=== PATIENT | male | born 1950 | race Caucasian/White ===

== ENCOUNTER 2019-10-05 12:59 | Inpatient (IN) | payer OTHER ==
[~2019-10-05] VITALS: Ht 182.9 cm; Wt 83.4 kg
[2019-10-05 14:28] LABS: HEMOGLOBIN 10.3 g/dl (13.5-18.0); MEAN CELL VOLUME 99 fl (80.0-100.0); MEAN CORPUSCULAR HEMOGLOBIN 32 pg (27.0-31.0); MEAN CORPUSCULAR HGB CONC 32 g/dl (33.0-37.0); MEAN PLATELET VOLUME 9.6 fl (7.4-10.4); PLATELET COUNT 253 K/mm3 (130-400); RED BLOOD COUNT 3.23 M/mm3 (4.20-5.60); REDCELL DISTRIBUTION WIDTH-CV 15.8 % (11.5-14.5)
[2019-10-05 14:32] LABS: INR 1.1 (0.8-3.0); PROTHROMBIN TIME 12.4 SECONDS (9.7-12.8)
[2019-10-05 14:36] LABS: BILIRUBIN,TOTAL 0.5 mg/dL (0.0-1.0); CALCIUM 9.2 mg/dL (8.4-10.2); CREATININE, serum 0.88 (0.66-1.25); POTASSIUM 4.7 mmol/L (3.4-5.0); TOTAL PROTEIN 7.5 gm/dL (6.4-8.2)
[2019-10-05 14:38] LABS: HEMATOCRIT 31.9 % (42.0-52.0)
[2019-10-05] MEDS ORDERED: ULTRAM 50MG TAB50 MG PO (16:05)
[2019-10-05] MEDS ORDERED: PRILOSEC 20MG20 MG PO (16:05)
[2019-10-05] MEDS ORDERED: PLAVIX 75MG TAB75 MG PO (16:06)
[2019-10-05] MEDS ORDERED: LYRICA 150MG C150 MG PO (16:08)
[2019-10-05] MEDS ORDERED: ZYLOPRIM 300MG300 MG PO (16:09)
[2019-10-05] MEDS ORDERED: GLUCOPHAGE500 MG/TAB PO (16:09)
[2019-10-05] MEDS ORDERED: METHOTREXA2.5 MG/TAB PO (16:10)
[2019-10-05] MEDS ORDERED: CYMBALTA 60MG60 MG PO (16:11)
[2019-10-05] MEDS ORDERED: LODINE500 MG PO (16:11)
--- NOTE | 2019-10-05 16:30 | NUR ---
Patient up from ER. Alert and oriented x 3. Spouse at bedside. Right lower extremity in splint. Left lower extremity appears shortened and externally rotated, pedal pulses intact. Patient is able to move BLE. States he fell going up the first step to his daughters house with a tool bag and landed on concrete. States he constantly has pain to right lower extremity. States pain is currently 7/10 with movement, better in some positions. INT to right AC. Denies further needs at this time. Will continue to monitor.
[2019-10-05 17:23] VITALS: BP 109/66; PULSE 118; TEMP 98.1
[2019-10-05 17:38] LABS: BAND 1 % (0-10); NEUTROPHILS 81 % (42.0-75.2); PLATELET ESTIMATE NORMAL (NORMAL)
[2019-10-05 17:39] LABS: LYMPHOCYTE 15 % (20.0-51.0)
--- NOTE | 2019-10-05 18:49 | NUR ---
Patient has done well this afternoon, morphine given for pain 8/ to left hip, states the norco did not help with the pain. States relief with morphine. Family concerned about increased edema to left hip. Denies further needs at this time. Reported off to tooth cutter contact wheel.
[2019-10-05 19:28] VITALS: BP 128/79; PULSE 110; TEMP 98
[2019-10-05 20:29] LABS: HEMATOCRIT 29.2 % (42.0-52.0); HEMOGLOBIN 9.5 g/dl (13.5-18.0)
--- NOTE | 2019-10-05 21:07 | NUR ---
Pt doing ok. Assessment completed. Alert and oriented with VSS. Pt did not require insulin this evening. Pt here with L hip fracture and right ankle fracture. L hip is swollen 2+ but not redness. Right ankle is wrapped. Pedal pulses present in both feet. Pt has problems swallowing, states he has had previous esophageal stretching and he is going to get fixed soon. Pt in room. Morphine given prn for pain as pt not able to swallow meds at this moment. Call light within reach, will continue to monitor
--- NOTE | 2019-10-06 00:01 | NUR ---
Pt resting in bed with in room. Pt has left hip externally rotated and states this is the only way he can move it. Pt does not want teds/scds
[2019-10-06 03:13] VITALS: BP 109/69; PULSE 122; TEMP 98.4
--- NOTE | 2019-10-06 03:46 | NUR ---
BLADDER SCANNED PT, GREATER THAN 650. INSERTED HWANG WITH RETURN OF 550 CC OF CLEAR, YELLOW URINE
[2019-10-06 03:49] LABS: MUCOUS Present /lpf; PH 5 (5-8); SQUAMOUS EPITHELIAL None Seen /hpf; URINE APPEARANCE Clear; URINE BACTERIA None Seen /hpf; URINE BILIRUBIN Positive (NEGATIVE); URINE BLOOD Negative (NEGATIVE); URINE COLOR Yellow; URINE GLUCOSE Negative (NEGATIVE); URINE KETONE Negative (NEGATIVE); URINE LEUKOCYTE ESTERASE Negative (NEGATIVE); URINE NITRATE Negative (NEGATIVE); URINE PROTEIN(semi-quant) Negative (NEGATIVE); URINE RBC 0-2 /hpf; URINE UROBILINOGEN >=4.0 mg/dL (NEGATIVE)
[2019-10-06 06:05] LABS: CREATININE, serum 0.7 (0.66-1.25)
[2019-10-06 06:07] LABS: POTASSIUM 7.2 mmol/L (3.4-5.0)
[2019-10-06 06:18] LABS: BASO % 0.3 % (0.0-2.0); EOS % 0.5 % (0-4.0); GRAN # 4.6 (1.4-6.5); GRAN % 71.5 % (42.2-75.2); LYMPH # 1.4 (1.2-3.4); LYMPH % 21.7 % (20.0-51.0); MEAN CELL VOLUME 99 fl (80.0-100.0); MEAN CORPUSCULAR HGB CONC 33 g/dl (33.0-37.0); MEAN PLATELET VOLUME 10.5 fl (7.4-10.4); MONO # 0.4 (0.1-0.6); MONO % 5.7 % (1.7-9.3); PLATELET COUNT 165 K/mm3 (130-400); RED BLOOD COUNT 2.91 M/mm3 (4.20-5.60); REDCELL DISTRIBUTION WIDTH-CV 15.6 % (11.5-14.5)
--- NOTE | 2019-10-06 06:25 | NUR ---
Pt potassium 7.2. EKG, ABG, CK, and repeat BMP ordered. PT on tele. Will continue to monitor
[2019-10-06 06:39] LABS: ARTERIAL BLD GAS TCO2 CT 22.5; ARTERIAL BLOOD GAS BASE EXCESS -2.9 (-2-2); ARTERIAL BLOOD GAS HCO3 21.4 meq/L (22-26); ARTERIAL BLOOD GAS PCO2 35.1 mmHg (35-45); ARTERIAL BLOOD GAS PO2 56.5 mmHg (80-100)
[2019-10-06 06:47] LABS: HEMATOCRIT 28.8 % (42.0-52.0); HEMOGLOBIN 9.5 g/dl (13.5-18.0); MEAN CORPUSCULAR HEMOGLOBIN 33 pg (27.0-31.0)
[2019-10-06 06:48] LABS: CREATININE, serum 0.82 (0.66-1.25); POTASSIUM 4.9 mmol/L (3.4-5.0)
--- NOTE | 2019-10-06 06:50 | NUR ---
awake resting in bed, daughter at bedside, bedside shift report received from HANNAH Ghosh, ANDREW MenonN in with results of follow up K+ results,
[2019-10-06 07:09] LABS: MAGNESIUM 1.7 mg/dL (1.6-2.3); PHOSPHOROUS 4.2 mg/dL (2.5-4.5)
[2019-10-06 07:41] LABS: INR 1.1 (0.8-3.0); PROTHROMBIN TIME 13.3 SECONDS (9.7-12.8)
--- NOTE | 2019-10-06 09:05 | NUR ---
returned from CT scan, Dorcas RITTER in to see patient, breakfast here and positioned sitting up to eat, states pain is 6/10 at this time
--- NOTE | 2019-10-06 09:50 | NUR ---
c/o pain 6/10 to left hip, medicated with morphine 2mg slow IV
--- NOTE | 2019-10-06 10:30 | NUR ---
states the morphine has helped with pain and he is resting with his eyes closed, patient placed in 7#s bucks traction and tolerated well, will let him rest now
[2019-10-06 10:38] VITALS: BP 112/73; PULSE 112; TEMP 97.8
--- NOTE | 2019-10-06 11:00 | NUR ---
have reviewed assessment completed by student an in agreement with that assessment
--- NOTE | 2019-10-06 12:00 | NUR ---
only eats small amount due to having difficulty swallowing
--- NOTE | 2019-10-06 13:00 | NUR ---
hygiene and catheter care provided, tolerated well but c/o pain8/10 after completing, medicated with morphine 2mg slow IV
[2019-10-06 13:03] VITALS: BP 131/69; PULSE 104; TEMP 98.2
--- NOTE | 2019-10-06 14:26 | NUR ---
bedside shift report given to HANNAH Vail
[2019-10-06 17:10] VITALS: BP 129/66; PULSE 114; TEMP 98.5
[2019-10-06 19:18] VITALS: BP 122/63; PULSE 112; TEMP 99.1
--- NOTE | 2019-10-06 20:41 | NUR ---
Pt doing ok. Resting in bed with in room. Alert and oriented with VSS. Edema to left hip, unchanged from this AM. Pt in traction and tolerating well. Pedal pulses present in chelsie feet. Pt taking morphine/norco for pain. plavix on hold for 5 days. on o2 at 2l/min. pt did not want to be repositioned at this time. denies other needs. call light within reach, will continue to monitor
[2019-10-06 23:50] VITALS: BP 114/60; PULSE 89; TEMP 97.6
[2019-10-07 03:39] VITALS: BP 115/55; PULSE 93; TEMP 98
--- NOTE | 2019-10-07 06:23 | NUR ---
Pt has done ok throughout night. Has been alternating between morphine and norco for pain control. Has been in traction all night with 10LB weight on lle. Right ankle in ramesh wrap dressing. Pt denies needs at this time, call light within reach. Will continue to monitor
[2019-10-07 07:16] LABS: BASO % 0.4 % (0.0-2.0); EOS # 0.1 (0.0-0.7); EOS % 1.6 % (0-4.0); GRAN # 4.7 (1.4-6.5); GRAN % 69.9 % (42.2-75.2); LYMPH # 1.5 (1.2-3.4); LYMPH % 21.6 % (20.0-51.0); MEAN CELL VOLUME 100 fl (80.0-100.0); MEAN CORPUSCULAR HGB CONC 33 g/dl (33.0-37.0); MEAN PLATELET VOLUME 10.2 fl (7.4-10.4); MONO # 0.4 (0.1-0.6); MONO % 6.1 % (1.7-9.3); PLATELET COUNT 212 K/mm3 (130-400); RED BLOOD COUNT 2.44 M/mm3 (4.20-5.60); REDCELL DISTRIBUTION WIDTH-CV 15.5 % (11.5-14.5)
[2019-10-07 07:43] LABS: CALCIUM 8.5 mg/dL (8.4-10.2); CREATININE, serum 0.81 (0.66-1.25); POTASSIUM 4.6 mmol/L (3.4-5.0)
--- NOTE | 2019-10-07 08:00 | NUR ---
PATIENT IS A&O. VSS. PATIENT ON BEDREST WITH 10 LBS TRACTION TO LLE. NOTED +3 EDEMA TO LEFT THIGH. PATIENT REPORTS TENDERNESS TO LLE. RLE ELEVATED ON PILLOW. RLE ACEWRAP DRESSING IS CD&I. IV FLUIDS INFUSING INTO RIGHT AC IV. BREAKFAST TRAY AT BEDSIDE. PATIENT EAT/DRINKING SUFFICENT AMOUNTS. NO C/O N/V. STUDENT NURSE GIVING AM MEDS. HWANG TO DD WITH LARGE AMOUNTS OF CLEAR YELLOW URINE NOTED. HEAD TO TOE ASSESSMENT COMPLETE. PATIENT RESTING UP IN BED. AT BEDSIDE. CALL LIGHT IN REACH.
[2019-10-07 08:04] VITALS: BP 114/53; PULSE 91; TEMP 98.1
[2019-10-07 08:15] LABS: HEMATOCRIT 24.3 % (42.0-52.0); HEMOGLOBIN 7.9 g/dl (13.5-18.0); MEAN CORPUSCULAR HEMOGLOBIN 32 pg (27.0-31.0)
--- NOTE | 2019-10-07 11:59 | NUR ---
First visit from the facilities operations technician. No needs right now.
[2019-10-07 12:17] VITALS: BP 104/60; PULSE 78; TEMP 98.2
--- NOTE | 2019-10-07 13:55 | NUR ---
JACINTO met with the patient and his , Belkis (ph#[phone]), to discuss discharge plan. The patient lives in [place] with his . He reports independence with ADLs before hospitalization and has a cane, walker, stoolriser, showerchair & bench. The patient receives primary care at the [facility] in [place]. He just switched physicians and could not recall who is new PCP there is. He is apart of [employer]. He receives his medications from the [facility] and [facility]. He reports no difficulties obtaining his meds. The patient does not have advanced directives in EMR, but he states that he does have them completed. He states that his is his DPOA-HC. The patient had a left hip fracture. SW discussed post-acute rehab. The patient and his report that they would be interested in this. JACINTO presented and explained the Patient Choice Form and provided them with Medicare.gov's list of SNF's in the [place] area. The patient and his chose [facility], [facility], [facility], and [facility]. The patient and his did not have a first preference at this time. The patient's reports that she plans to go tour the facilities this week. Patient Choice Form signed by the patient's and she was provided a copy. JACINTO contacted and faxed a referral to all four facilities. SW awaiting their screens. The patient's also provided JACINTO with the [facility]'s manager social responsibility, Hilda Reddy, phone number. JACINTO attempted to call that phone number & extension. It states that the extension is invalid. JACINTO contacted the [facility]'s main number and requested Hilda Reddy. SW left her a voicemail. SW to continue to follow. [facility]: ph#[phone], fax#[phone] [facility]: ph#[phone], fax#[phone] [facility]: ph#[phone], fax#[phone] [facility]: ph#[phone], fax#[phone]
--- NOTE | 2019-10-07 16:20 | NUR ---
PATIENT'S OUT AT DESK REPORTING SHE FOUND A WHITE PILL IN THE PATIENT'S BED. PILL IDENTIFIED NORCO. REPORTS SHE THINKS THIS PILL WAS GIVEN BY THE PHYSICIAN BEFORE BED BATH. PATIENT RECENTLY RECEIVED A NORCO, ONE TAB FROM ME. I WATCHED PATIENT TAKE THE DOSE I GAVE. PHARMACY CALLED, NORCO WASTED IN OMNICELL.
--- NOTE | 2019-10-07 16:33 | NUR ---
JACINTO received a phone call back from Hilda Reddy, older adult social work specialist at the [facility]. She reports that she will try and work with which ever facility the patient and his prefer. Hilda's phone number is [phone] ext.[phone].
[2019-10-07 17:03] VITALS: BP 108/47; PULSE 100; TEMP 98.5
[2019-10-07 20:05] VITALS: BP 102/53; PULSE 96; TEMP 98.3
[2019-10-07 22:27] LABS: COLLECTION METHOD CLEAN CATCH
[2019-10-07 23:55] VITALS: BP 105/53; PULSE 90; TEMP 98.5
[2019-10-08] VITALS (17 sets, daily range): BP systolic 85–159; BP diastolic 54–114; PULSE 82–101; TEMP 97.4–99.7
--- NOTE | 2019-10-08 00:26 | NUR ---
Patient doing okay tonight. alert and oriented. c/o moderate to severe pain throughout night. prn norco, ultram, and morphine given. splint and ramesh wrap to R ankle and elevated on pillow. L hip swollen and is to 10#s bucks traction. paz to DD, draining clear yellow urine. R AC INT flushed and patent. tele SR. WBG this evening was 130, no insulin required. no further needs at this time. will continue to monitor.
[2019-10-08 07:53] LABS: BASO % 0.5 % (0.0-2.0); EOS # 0.2 (0.0-0.7); GRAN # 3.6 (1.4-6.5); GRAN % 59.7 % (42.2-75.2); LYMPH # 1.8 (1.2-3.4); LYMPH % 28.9 % (20.0-51.0); MEAN CELL VOLUME 100 fl (80.0-100.0); MEAN CORPUSCULAR HGB CONC 33 g/dl (33.0-37.0); MEAN PLATELET VOLUME 10.4 fl (7.4-10.4); MONO # 0.5 (0.1-0.6); MONO % 7.6 % (1.7-9.3); PLATELET COUNT 189 K/mm3 (130-400); RED BLOOD COUNT 2.16 M/mm3 (4.20-5.60); REDCELL DISTRIBUTION WIDTH-CV 15.4 % (11.5-14.5)
[2019-10-08 07:55] LABS: HEMATOCRIT 21.5 % (42.0-52.0); MEAN CORPUSCULAR HEMOGLOBIN 32 pg (27.0-31.0)
[2019-10-08 08:00] LABS: CALCIUM 8.7 mg/dL (8.4-10.2); CREATININE, serum 0.81 (0.66-1.25); POTASSIUM 4.3 mmol/L (3.4-5.0)
--- NOTE | 2019-10-08 08:06 | NUR ---
Sitting up in bed. Rating pain in left thigh and right ankle 7/10 and describes as a steady pain. Jackson traction to left lower extremity. Left lower extremity is externally rotated. Splint intact to right lower extremity. CMS intact to bilat LE. Denies needs at this time. in room with the patient.
--- NOTE | 2019-10-08 10:30 | NUR ---
IV site to right AC leaking when attempt flush. IV site dc'd with catheter intact. Applied 2x2 to site and reinforced with tape. #18 gauge started in the right forearm times 2 sticks by this nurse. Blood return received and site flushes without difficulty. Reinforced with tegaderm and tape. Connected NS as blood transfusion will be started. Patient tolerates procedure without difficulty. Understood blood transfusion process and side effects to watch for.
--- NOTE | 2019-10-08 10:50 | NUR ---
Blood transfusion started at this time. Vitals obtained prior to starting. Blood product confirmed by this nurse and HANNAH Cardoza.
--- NOTE | 2019-10-08 11:05 | NUR ---
Vital signs stable after first 15 minutes. No adverse reactions noted. Patient says that he is feeling fine.
--- NOTE | 2019-10-08 11:44 | NUR ---
Surgery staff here to take patient to the OR. Blood transfusing without difficulty, no adverse effects. Surgery will continue blood transfusion and give second unit.
--- NOTE | 2019-10-08 15:56 | NUR ---
The patient went to surgery today, 10/08. Kaiden, from [facility], requested the patient's VA card to inquire if they are in network. JACINTO faxed Kaiden at [facility] updates and his VA card. Deloris, at [facility], reports that their main concern is the patient's Humira injection. She states that it is very expensive. She also states that they would not be able to provide transportation. JACINTO to inform the patient and his . JACINTO also faxed updates to [facility], Deloris at [facility], and [facility]. JACINTO to continue to follow.
--- NOTE | 2019-10-08 17:43 | NUR ---
Patient brought to room for PACU by PACU staff. Patient is alert, a little confused on where he is at and exact date. Patient denies pain at this time. Able to move all extremities. Bilat LE CMS intact. Splint in place to right lower extremity. Aquacel dressing to left hip CDI. Patient denies needs at this time. in room with the patient.
--- NOTE | 2019-10-08 18:32 | NUR ---
Lying in bed with eyes closed. says that patient is a little restless so she turned down lights to try to get him to sleep a little bit. Patient able to move extremities. Denies needs at this time.
--- NOTE | 2019-10-08 18:46 | NUR ---
Complaining of pain and requests pain medication. Morphine administered as prescribed. Patient lying in bed, eyes open, becoming more alert and oriented. Denies further needs.
[2019-10-09] VITALS: BP 133/73; PULSE 103; TEMP 98.1
--- NOTE | 2019-10-09 02:55 | NUR ---
Patient doing well tonight. alert and oriented. resting in bed. pain is moderate to severe throughout night and prn morphine given q2 hours. patient has had issues after dinner with feeling like he has something stuck in his throat, states he has esophagus issues. shanel called, orders to make him NPO and possible GI or speech consult in AM. prn tums ordered and given. aquacell to L hip and splint with ramesh wrap to R ankle. no further needs at this time. will continue to monitor.
[2019-10-09 04:00] VITALS: BP 130/75; PULSE 94; TEMP 98.1
[2019-10-09 07:52] LABS: GRAN # 5.3 (1.4-6.5); GRAN % 82.6 % (42.2-75.2); LYMPH # 0.6 (1.2-3.4); MEAN CELL VOLUME 96 fl (80.0-100.0); MEAN CORPUSCULAR HGB CONC 34 g/dl (33.0-37.0); MONO # 0.4 (0.1-0.6); MONO % 6.9 % (1.7-9.3); PLATELET COUNT 189 K/mm3 (130-400); RED BLOOD COUNT 2.38 M/mm3 (4.20-5.60); REDCELL DISTRIBUTION WIDTH-CV 16.4 % (11.5-14.5)
[2019-10-09 07:53] LABS: HEMATOCRIT 22.8 % (42.0-52.0); HEMOGLOBIN 7.7 g/dl (13.5-18.0); MEAN CORPUSCULAR HEMOGLOBIN 32 pg (27.0-31.0)
[2019-10-09 08:04] LABS: ALBUMIN 3.1 gm/dL (3.5-5.0); BILIRUBIN,TOTAL 0.5 mg/dL (0.0-1.0); CALCIUM 8.6 mg/dL (8.4-10.2); CREATININE, serum 0.79 (0.66-1.25); POTASSIUM 4.8 mmol/L (3.4-5.0); TOTAL PROTEIN 6.1 gm/dL (6.4-8.2)
[2019-10-09 09:59] VITALS: BP 105/67; PULSE 83; TEMP 98.8
--- NOTE | 2019-10-09 10:00 | NUR ---
HOSPITALIST MID-LEVEL ROUNDED. GI CONSULTED. PATIENT WILL REMAIN NPO UNTIL GI CONSULT. PATIENT HAS HX OF ESOPHAGEAL STRICTURES AND PREVIOUS STRETCHINGS.
[2019-10-09 14:02] VITALS: BP 112/51; PULSE 84; TEMP 98.2
--- NOTE | 2019-10-09 14:51 | NUR ---
JACINTO met with the patient and his , Belkis, to update on referrals and to discuss the Humira injection. Belkis states that the patient gets the Humira injection once every other week. She states that she administers it. Belkis also reports that she hopes to go and tour the four facilities tomorrow. She states that she is leaning towards [facility] as first preference and [facility] as second preference. Belkis also had questions about medical tranport services that are available, if the facilities cannot transport. JACINTO attempted to contact Alejandra at [facility] (ph#[phone]). JACINTO left her a voicemail. Kaiden, at [facility], reports that they are able to accept the patient for a skilled stay. She states that they are not in contract with the patient's VA Choice, but that he would be covered at 100% through his Medicare for the first 20 days. She states on the day he would have a co-pay of $174.54 a day. She also states that they would not be able to provide transportation. JACINTO contacted JACINTO Combs at the [facility]. Lucy reports that Brooke Loera (ph#[phone] ext.[phone]) is actually assigned to his case. JACINTO attempted to cnmtact Brooke. JACINTO left him a voicemail. SW to update the patient and his and will continue to follow.
--- NOTE | 2019-10-09 15:33 | NUR ---
AT BEDSIDE ROUNDING
[2019-10-09 16:29] VITALS: BP 108/54; PULSE 92; TEMP 98
[2019-10-09 20:00] VITALS: BP 125/67; PULSE 96; TEMP 98
--- NOTE | 2019-10-09 23:23 | NUR ---
Patient doing well tonight, alert and oriented. some confusion noted at times, this was discussed with who state this is new for him. aquacell to L hip has some drainage noted. R ankle splinted and wrapped with CHIKIS wrap. patient able to wiggle toes on both feet and good cap refill on both feet. c/o moderate pain throughout the night which is treated with prn morphine q2 hours. tele running sinus rhythm. accucheck at 1999, WBG 166, discussed with patient and in agreeance to not give insulin due to being NPO status tonight. Consent for upper gi endoscopy signed and in chart. no further needs at this time. will continue to monitor.
[2019-10-10] VITALS (12 sets, daily range): BP systolic 108–140; BP diastolic 60–86; PULSE 89–114; TEMP 97.9–98.3
[2019-10-10 06:29] LABS: BASO % 0.3 % (0.0-2.0); EOS % 0.3 % (0-4.0); GRAN % 62.3 % (42.2-75.2); LYMPH # 2.1 (1.2-3.4); LYMPH % 25.8 % (20.0-51.0); MEAN CELL VOLUME 95 fl (80.0-100.0); MEAN CORPUSCULAR HGB CONC 33 g/dl (33.0-37.0); MEAN PLATELET VOLUME 10.6 fl (7.4-10.4); MONO # 0.8 (0.1-0.6); MONO % 10.3 % (1.7-9.3); PLATELET COUNT 222 K/mm3 (130-400); RED BLOOD COUNT 2.26 M/mm3 (4.20-5.60); REDCELL DISTRIBUTION WIDTH-CV 16.5 % (11.5-14.5)
[2019-10-10 06:32] LABS: CALCIUM 8.9 mg/dL (8.4-10.2); CREATININE, serum 0.79 (0.66-1.25); POTASSIUM 4.3 mmol/L (3.4-5.0)
[2019-10-10 06:39] LABS: HEMATOCRIT 21.5 % (42.0-52.0); HEMOGLOBIN 7.1 g/dl (13.5-18.0); MEAN CORPUSCULAR HEMOGLOBIN 31 pg (27.0-31.0)
--- NOTE | 2019-10-10 08:00 | NUR ---
PATIENT IS A&O. VSS. RESTING UP IN BED WITH RLE ELEVATED ON PILLOWS WITH ICE PACK. RLE DRESSING IS CD&I WITH SPLINT AND ACEWRAP. AQUACEL TO LEFT HIP IS CD&I. POSITIVE PEDAL PULSES TO BLE. NPO FOR EGD TODAY. PATIENT HAS HX OF ESOPHAGEAL STRETCHINGS. CONSENT ON CHART. STUDENT NURSE WORKING WITH PATIENT TODAY, SEE CHARTING.
--- NOTE | 2019-10-10 10:43 | NUR ---
Alejandra, at [facility], reports that they do not have any beds available at this time. JACINTO contacted Brooke Loera, rn social work at the [facility]. Brooke reports that the patient does not qualify for any skilled benefits and that the patient would have to utilize his Medicare benefits for a skilled stay. She states that there is also no medical transport services through the [place] that could provide the patient with transportation to SNF and that would be covered. She states that the patient would have to private pay. JACINTO contacted and updated to the patient's , Belkis. Belkis reports that she would still like to tour all the facilities today and would update JACINTO on if she is agreeable for the patient to go to their second preference, [facility]. Belkis also states that she is leaning towards providing transport for the patient to facility. SW to continue to follow.
--- NOTE | 2019-10-10 13:57 | NUR ---
Pt NPO and waiting on procedure for 3. Gave Morphine every several hours.
--- NOTE | 2019-10-10 15:35 | NUR ---
PATIENT GOING DOWN TO ENDO VIA BED FOR ESOPHAGEAL STRETCHING.
--- NOTE | 2019-10-10 16:08 | NUR ---
The patient's , Belkis, contacted JACINTO to inform that she has toured both [facility] and [facility] and she is agreeable to the patient going to [facility] upon discharge using his Medicare benefits. She states that she can provide transport for the patient. SW updated the patient's on how the patient may possibly be able to discharge tomorrow, depending on his hemoglobin. The patient's verbalized understanding. JACINTO attempted to contact Kaiden, at [facility], to update and inform of the patient and wanting to come to them. SW left her a voicemail. SW to continue to follow.
--- NOTE | 2019-10-10 16:20 | NUR ---
PATIENT BACK IN ROOM AFTER EGD. AWAKE AND ALERT. DAUGHTER NOW IN ROOM. PATIENT CALLING . NO COMPLAINTS. VSS.
--- NOTE | 2019-10-10 20:00 | NUR ---
Report received. Assumed care for hotel engineer. Assessment complete. VS stable. plan of care discussed for this shift to include pain control/HS meds. Dressing to left hip with dime size spot of old drainage. Splint/ramesh to right ankle CDI. C/O pain to left hip-medicated per dr order/fresh ice pack applied. Denies nausea/shortness of breath. Assisted with bed bath/oral care. Denies questions/concerns. Call light in reach. Will monitor.
--- NOTE | 2019-10-11 00:48 | NUR ---
Reports 9/10 pain in bilateral lower extremities. Provided with PRN tramadol at this time.
[2019-10-11 04:28] VITALS: BP 123/70; PULSE 96; TEMP 98.1
--- NOTE | 2019-10-11 05:00 | NUR ---
Rested well later this shift when pain was more controlled. Encouraged to call for PO medications when needed. Right lower extremity remained elevated on pillows-ice pack to left hip. Denied shortness of breath/nausea. Gage cath with dark yellow urine. Tolerating PO. Call in reach.
[2019-10-11 07:29] LABS: CREATININE, serum 0.72 (0.66-1.25); POTASSIUM 4.1 mmol/L (3.4-5.0)
[2019-10-11 07:37] LABS: BASO % 0.4 % (0.0-2.0); EOS # 0.1 (0.0-0.7); EOS % 1.2 % (0-4.0); GRAN # 5.6 (1.4-6.5); GRAN % 67.7 % (42.2-75.2); LYMPH # 1.7 (1.2-3.4); LYMPH % 20.6 % (20.0-51.0); MEAN CELL VOLUME 98 fl (80.0-100.0); MEAN CORPUSCULAR HGB CONC 33 g/dl (33.0-37.0); MEAN PLATELET VOLUME 10.7 fl (7.4-10.4); MONO # 0.8 (0.1-0.6); MONO % 9.5 % (1.7-9.3); PLATELET COUNT 265 K/mm3 (130-400); RED BLOOD COUNT 2.27 M/mm3 (4.20-5.60); REDCELL DISTRIBUTION WIDTH-CV 16.4 % (11.5-14.5)
[2019-10-11 07:39] LABS: HEMATOCRIT 22.3 % (42.0-52.0); HEMOGLOBIN 7.3 g/dl (13.5-18.0); MEAN CORPUSCULAR HEMOGLOBIN 32 pg (27.0-31.0)
[2019-10-11 08:00] VITALS: BP 111/59; PULSE 103; TEMP 98.3
[2019-10-11] MEDS ORDERED: ASPI325T6 PO (10:20)
[2019-10-11] MEDS ORDERED: LOPRESSOR 225 MG/TAB PO (10:21)
[2019-10-11] MEDS ORDERED: COLACE 100100 MG/CAP PO (10:21)
[2019-10-11] MEDS ORDERED: TYLENOL 325MG325 MG PO (10:21)
[2019-10-11] MEDS ORDERED: IPRATROPIUM BROM3 M1 IH (10:23)
[2019-10-11] MEDS ORDERED: NORCO 325 MG-51 TAB PO (10:28)
[2019-10-11] MEDS ORDERED: ULTRAM 50MG TAB50 MG PO (10:28)
--- NOTE | 2019-10-11 10:41 | NUR ---
Kaiden, at [facility], contacted JACINTO to inform that she received JACINTO's voicemail and that they are able to accept the patient today. The patient is to discharge today, 10/11, to [facility] for a skilled stay. Transportation to be by private vehicle, via the patient's (Belkis). No additional needs at this time.
--- NOTE | 2019-10-11 11:58 | NUR ---
REPORT CALLED TO [facility].
[2019-10-11 12:00] VITALS: BP 110/67; PULSE 97; TEMP 98.3
[2019-10-11] MEDS ORDERED: LYRICA 150MG C150 MG PO (12:23)
--- NOTE | 2019-10-11 13:47 | NUR ---
VERIFIED WB STATUS WITH DR. DAVIS AND THEN PT WAS DISCHARGE WITH ASSIST OF THERAPY TO TRANSFER TO VEHICLE. FAMILY TRANSPORTING TO [place].
== END 2019-10-11 13:30 | DRG 480 ==
LOC: COL.ER 12:59 → SURG 14:49 → EDBEDREQSVC 15:33 → SURG 10-06 19:00
PROVIDERS: Emergency Medicine; Nurse Practitioner Family; Orthopaedic Surgery Sports Medicine; Physician Assistant; Student in an Organized Health Care Education/Training Program; ADMIT Internal Medicine
PROC: 0QS704Z Reposition Left Upper Femur with Internal Fixation Device, Open Approach (ICD-10-PCS; principal; 2019-10-08 13:00)
PROC: 0QSG04Z Reposition Right Tibia with Internal Fixation Device, Open Approach (ICD-10-PCS; 2019-10-08 13:00)
DX: S82.851A Displaced trimalleolar fracture of right lower leg, initial encounter for closed fracture (principal); S72.002A Fracture of unspecified part of neck of left femur, initial encounter for closed fracture; J96.01 Acute respiratory failure with hypoxia; M97.02XA Periprosthetic fracture around internal prosthetic left hip joint, initial encounter; E44.0 Moderate protein-calorie malnutrition; F17.200 Nicotine dependence, unspecified, uncomplicated; E11.40 Type 2 diabetes mellitus with diabetic neuropathy, unspecified; K21.9 Gastro-esophageal reflux disease without esophagitis; R00.0 Tachycardia, unspecified; E87.5 Hyperkalemia; D64.9 Anemia, unspecified; R13.10 Dysphagia, unspecified; M06.9 Rheumatoid arthritis, unspecified; I73.9 Peripheral vascular disease, unspecified; E78.5 Hyperlipidemia, unspecified; J44.9 Chronic obstructive pulmonary disease, unspecified; I10 Essential (primary) hypertension; Z96.642 Presence of left artificial hip joint; G89.29 Other chronic pain; W18.39XA Other fall on same level, initial encounter; Z79.01 Long term (current) use of anticoagulants; Z86.718 Personal history of other venous thrombosis and embolism; Y93.89 Activity, other specified; Y92.098 Other place in other non-institutional residence as the place of occurrence of the external cause
CPT/HCPCS: 99222-AI; 99231-AI; 99232-AI; 99233-AI; 99239; A9284; C1713; C1726; C1776; J0690; J1100; J1650; J1815; J2250; J2270; J2370; J2405; J2704; J3010; J7030; J7120; P9016; Q4045